=== PATIENT | male | born 1985 | race Caucasian/White ===

== ENCOUNTER 2018-12-12 13:49 | Emergency (ER) | payer OTHER ==
[~2018-12-12] VITALS: Ht 401.3 cm; Wt 85.7 kg
== END 2018-12-12 16:14 | disposition home or self-care (01) ==
LOC: ER 13:49 → EDBD 13:49 → ER 14:27
DX: S05.12XA Contusion of eyeball and orbital tissues, left eye, initial encounter (principal); W22.8XXA Striking against or struck by other objects, initial encounter; Y93.89 Activity, other specified; Y92.89 Other specified places as the place of occurrence of the external cause; Y99.8 Other external cause status